=== PATIENT | female | born 1980 | race Caucasian/White ===

== ENCOUNTER 2020-02-27 06:08 | Inpatient (IN) | payer BC ==
[2020-02-27] MEDS ORDERED: METHYLERGONOVINE 0.2 MG/ML 1 ML AMP IM PRN (06:34)
[2020-02-27] MEDS ORDERED: CARBOPROST TROMETHAMINE 250 MCG/ML 1 ML AMP IM PRN (06:34)
[2020-02-27] MEDS ORDERED: LIDOCAINE 0.5% (PF) 5 MG/ML (50 ML SDV) SQ PRN (06:34)
[2020-02-27] MEDS ORDERED: OXYTOCIN 10 UNIT/ML 1 ML VIAL IM PRN (06:34)
[2020-02-27] MEDS ORDERED: TERBUTALINE 1 MG/ML VIAL SQ PRN (06:34)
[2020-02-27] MEDS ORDERED: OXYTOCIN 30 UNITS/500 ML NS 30 UNIT in SALINE 1 500ML.BAG IV SCH (06:45)
[2020-02-27] MEDS ORDERED: LACTATED RINGERS 1,000 ML IV SCH ×2 (06:45)
--- NOTE | 2020-02-27 08:04 | P.HPOB ---
History of Present Illness H&P Date: 02/27/20 Chief Complaint: Here for induction of labor, spontaneous uterine contractions noted. This is a 40-year-old female 4 para 2011 EDC 03/05/2020 at 39 weeks gestation who presents this morning for induction with favorable multiparous cervix. She is noted to be in early spontaneous labor with uterine contractions every 4-5 minutes apart. Fetus is been active throughout the . She denies fluid leakage or vaginal bleeding. Past medical history is essentially negative. Past surgical history wisdom teeth extracted in the past. Current medications vitamins daily. ALLERGIES sulfa, reaction unknown. Family history significant for hypertension. 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 She denies alcohol or drug use. history blood type A positive, rubella status immune. VDRL testing, ur ine culture, hepatitis B surface antigen, HIV testing, gonorrhea and chlamydia cultures, group B strep cultures all negative. One-hour Glucola 124. On exam patient is 5 foot 5 inches, 187 pounds, blood pressure 123/65. The general physical exam is within normal limits. The cervix is 4 cm dilated, 70% effaced, -2 station, vertex presentation. Artificial amniorrhexis reveals clear fluid. heart rate is consistent with reactive NST. Impression: 39 week intrauterine , here for elective induction of labor, in early spontaneous labor. Advanced maternal age. All signs reassurin g. Plan: Close maternal and surveillance. Oxytocin per hospital protocol. Anticipate normal spontaneous vaginal delivery. Analgesic options reviewed. Review of Systems Constitutional: Reports as per HPI Past Medical History Past Medical History: No Reported History Additional Past Medical History / Comment(s): GESTATIONAL DIABETES PAST History of Any Multi-Drug Resistant Organisms: None Reported Past Surgical History: No Surgical Hx Reported Past Anesthesia/Blood Transfusion Reactions: No Reported Reaction Past Psychological History: No Psychological Hx Reported Smoking Status: Never smoker Past Alcohol Use History: None Reported Past Drug Use History: None Reported - Past Family History Mother History Unknown: Yes Family Medical History: No Reported History Medications and Allergies Home Medications Medication Instructions Recorded Confirmed Type Pnv,Calcium 72/Iron/Folic Acid 1 tab PO DAILY 10/26/15 02/27/20 History [ Plus Tablet] Aspirin 1 tab PO ONCE 02/27/20 02/27/20 History Allergies Allergy/AdvReac Type Severity Reaction Status Date / Time No Known Allergies Allergy Verified 02/27/20 06:33 Exam Vital Signs Temp Pulse Resp BP Pulse Ox 02/27/20 06:44 97.2 F L 67 16 123/65 99 Intake and Output 02/26/20 02/27/20 02/27/20 22:59 06:59 14:59 Other: Weight 84.822 kg See dictation under HPI placed Assessment and Plan Assessment: 39 week intrauterine , favorable multiparous cervix, early spontaneous labor. Advanced maternal age. All signs reassuring. Plan: Close maternal and surveillance. Oxytocin as needed. Analgesic options reviewed. Anticipate normal spontaneous vaginal delivery. Time with Patient: Less than 30
[2020-02-27 08:36] LABS: Basophils % (A) 0 %; Eosinophils # (A) 0.2 k/uL (0-0.7); Eosinophils % (A) 4 %; HCT 37.4 % (34.0-46.0); HGB 12.2 gm/dL (11.4-16.0); Lymphocytes # (A) 1.4 k/uL (1.0-4.8); Lymphocytes % (A) 20 %; MCH 29.5 pg (25.0-35.0); MCHC 32.7 g/dL (31.0-37.0); MCV 90.2 fL (80.0-100.0); Mean Platelet Volume 10.7; Monocytes # (A) 0.4 k/uL (0-1.0); Monocytes % (A) 5 %; Neutrophils # (A) 4.9 k/uL (1.3-7.7); Neutrophils % (A) 69 %; Platelet Count 178 k/uL (150-450); RBC 4.15 m/uL (3.80-5.40); RDW 14.1 % (11.5-15.5); WBC 7.1 k/uL (3.8-10.6)
[2020-02-27] MEDS ORDERED: IBUPROFEN 600 MG TAB PO PRN (10:20)
[2020-02-27] MEDS ORDERED: HYDROCORTISONE 2.5% RECTAL CREAM 30 GM TUBE RECTAL PRN (10:20)
[2020-02-27] MEDS ORDERED: ZOLPIDEM 5 MG TAB PO PRN (10:20)
[2020-02-27] MEDS ORDERED: diphenhydrAMINE 50 MG/ML 1 ML VIAL IVP PRN ×2 (10:20)
[2020-02-27] MEDS ORDERED: diphenhydrAMINE 25 MG CAP PO PRN (10:20)
[2020-02-27] MEDS ORDERED: SIMETHICONE 80 MG CHEWABLE PO PRN (10:20)
[2020-02-27] MEDS ORDERED: ACETAMINOPHEN TAB 325 MG TAB PO PRN (10:20)
[2020-02-27] MEDS ORDERED: diphenhydrAMINE 50 MG CAP PO PRN (10:20)
[2020-02-27] MEDS ORDERED: BENZOCAINE/MENTHOL SPRAY 1 GM/SPRAY AEROSOL TOPICAL PRN (10:20)
[2020-02-27] MEDS ORDERED: LANOLIN CREAM 5 GM TUBE TOPICAL PRN (10:20)
--- NOTE | 2020-02-27 10:20 | P.PROBDLV ---
Vaginal Delivery Note - . Vaginal Delivery Note: This is a 40-year-old white female 4 para 2012 EDC 03/05/2020 at 39 weeks gestation. Patient presented today for induction with favorable multiparous cervix. Fetus is been active throughout the . remarkable for group B strep cultures negative, blood type O positive, rubella status immune. Please see dictated history and physical for details. Artificial amniorrhexis revealed clear fluid. Oxytocin was started and titrated per hospital protocol. Epidural was placed per her request. heart tones were reassuring throughout the first and second stages of labor. Patient was judged to be completely dilated at 0958 hours and began the second stage of labor at that time. Perineal body was prepped and draped in usual sterile fashion. Infant's head delivered occiput anterior and he restituted accordingly. There was a nuchal cord 1 was reduced on the perineal body. Anterior left shoulder was delivered without issue, patient officially delivered of a liveborn male at 1004 hrs. Umbilical cord was doubly clamped and ligated, he was handed to waiting nurses for evaluation where scores of 8 and 9 at one and 5 minutes respectively were given. Uterus was massaged. The placenta delivered spontaneously at 1007 hrs., it was inspected and noted to be intact with trivascular cord. Inspection of the cervix, vagina, perineum, periurethral, and perirectal areas revealed no significant lacerations or defects. Fundus is firm and in the midline, symmetric and 18 week size upon completion of delivery. Estimated blood loss 200 mL's. Infant weighed 3-75 g or 7 pounds 3.5 ounces. Patient is requesting circumcision for her infant son.
[2020-02-27] MEDS: SENNOSIDES-DOCUSATE SODIUM 1 EACH TAB PO SCH (19:44)
[2020-02-28 06:48] LABS: Basophils % (A) 0 %; Eosinophils # (A) 0.2 k/uL (0-0.7); Eosinophils % (A) 3 %; HCT 35.6 % (34.0-46.0); HGB 11.5 gm/dL (11.4-16.0); Lymphocytes # (A) 1.5 k/uL (1.0-4.8); Lymphocytes % (A) 19 %; MCH 28.9 pg (25.0-35.0); MCHC 32.3 g/dL (31.0-37.0); MCV 89.6 fL (80.0-100.0); Mean Platelet Volume 8.9; Monocytes # (A) 0.4 k/uL (0-1.0); Monocytes % (A) 5 %; Neutrophils # (A) 5.8 k/uL (1.3-7.7); Neutrophils % (A) 72 %; Platelet Count 161 k/uL (150-450); RBC 3.97 m/uL (3.80-5.40)
--- NOTE | 2020-02-28 08:09 | P.DS ---
Providers Date of admission: 02/27/20 06:08 Expected date of discharge: 02/28/20 Attending physician: Elida Ramírez Primary care physician: [facility] [place] Course: This is a 40-year-old female 4 para 2012 EDC 03/05/2020 at 39 weeks gestation who presented for induction with favorable multiparous cervix. was remarkable for negative group B strep cultures, rubella status immune, blood type O+. Please see dictated history and physical for details. Artificial amniorrhexis revealed clear fluid. Patient quickly went on to deliver a liveborn male vaginally, scores 8 and 9 at one and 5 minutes respectively. There were no lacerations or tears encountered. weighed 7 pounds 3.5 ounces or 3275 g. Estimated blood loss recorded of 200 mL's. There was a nuchal cord encountered and easily reduced. Please see dictated delivery note for details. This morning the patient is doing well. She is voiding, ambulate in, passing flatus without difficulty. Vital signs are stable and she is afebrile. Eleele is doing well. Circumcision was just performed. Patient is judged to be in excellent condition for discharge home. She will follow-up with me in the office in 6 weeks. I have reminded her no intercourse, tampons or douching. She will use [id number] Advil or Aleve, or Motrin as needed for pain. She will call with any fevers shakes or chills, foul smelling or copious lochia, with the passage of large blood clots, with any pain not alleviated by [id number] products, or indeed with any concerns. We have discussed contraceptive options and we will discuss this further in the office. Assessment: Doing well day #1 Patient Condition at Discharge: Good Plan - Discharge Summary Discharge Rx Participant: No New Discharge Prescriptions: No Action Pnv,Calcium 72/Iron/Folic Acid [ Plus Tablet] 1 tab PO DAILY Aspirin 1 tab PO ONCE Discharge Medication List Pnv,Calcium 72/Iron/Folic Acid [ Plus Tablet] 1 tab PO DAILY 10/26/15 [History] Aspirin 1 tab PO ONCE 02/27/20 [History] Follow up Appointment(s)/Referral(s): Elida Ramírez MD [STAFF PHYSICIAN] - 2 Weeks
[2020-02-28] MEDS: SENNOSIDES-DOCUSATE SODIUM 1 EACH TAB PO SCH (09:10)
[2020-02-28 09:42] VITALS: BP 124/74; PULSE 74; RESP 16; TEMP 97.9
== END 2020-02-28 11:15 | disposition home or self-care (01) | DRG 807 ==
LOC: 4FBP 06:08
PROVIDERS: ADMIT Obstetrics & Gynecology; ATTEND Obstetrics & Gynecology
PROC: 10E0XZZ Delivery of Products of Conception, External Approach (ICD-10-PCS; principal; 2020-02-27)
PROC: 10907ZC Drainage of Amniotic Fluid, Therapeutic from Products of Conception, Via Natural or Artificial Opening (ICD-10-PCS; principal; 2020-02-27)
PROC: 3E033VJ Introduction of Other Hormone into Peripheral Vein, Percutaneous Approach (ICD-10-PCS; principal; 2020-02-27)
DX: O69.81X0 Labor and delivery complicated by cord around neck, without compression, not applicable or unspecified (principal); Z37.0 Single live birth; Z3A.39 39 weeks gestation of pregnancy; Z82.49 Family history of ischemic heart disease and other diseases of the circulatory system; Z86.32 Personal history of gestational diabetes; Z88.2 Allergy status to sulfonamides; Z79.82 Long term (current) use of aspirin
CPT/HCPCS: 85025; 86850; 86900; 86901

== ENCOUNTER → 2022-08-01 | Outpatient (CLI) | payer BC ==
--- NOTE | 2022-08-01 13:25 | MM ---
Reason for Exam: Follow-up at short interval from prior study. Last screening mammogram was performed 6 month(s) ago. Patient History: Menarche at age 15. First Full-Term at age 33. Late child-bearing (after 30). Last menstrual period: 07/21/2022 Risk Values: Robyn 5 year model risk: 0.8%. NCI Lifetime model risk: 13.6%. Prior Study Comparison: 01/30/2022 Bilateral MG 3D screening mammo w/cad, [facility]. Tissue Density: Right: The breast tissue is heterogeneously dense. This may lower the sensitivity of mammography. Findings: Analyzed By CAD. No suspicious group of calcifications within the right breast. Redemonstration of a lobulated 9 mm mass within the upper outer right breast at posterior depth. Redemonstration of a elongated 9 mm mass within the lower outer right breast. No new suspicious masses. Overall Assessment: Incomplete: need additional imaging evaluation, BI-RAD 0 Management: Diagnostic Breast Ultrasound of the right breast. A clinical breast exam by your physician is recommended on an annual basis and results should be correlated with mammographic findings. This exam should not preclude additional follow-up of suspicious palpable abnormalities. Results were given to the patient verbally at the time of exam. Note on Robyn scores and lifetime risk: 1. A Robyn score greater than 3% is considered moderate risk. If this is the case, consider specialist referral to assess eligibility for a risk reducing agent. If overall lifetime risk for the development of breast cancer is 20% or higher, the patient may qualify for future screening with alternating mammogram and breast MRI. Electronically signed and approved by: Attila Guan D.O.
--- NOTE | 2022-08-01 14:02 | USB ---
Reason for Exam: Additional evaluation requested from prior study. Patient History: Menarche at age 15. First Full-Term at age 33. Late child-bearing (after 30). Risk Values: Robyn 5 year model risk: 0.8%. NCI Lifetime model risk: 13.6%. Technique: Method: Targeted. Prior Study Comparison: 01/30/2022 Bilateral MG 3D screening mammo w/cad, [facility]. Findings: The lateral section of the breast of the right breast, the axilla of the right breast and the retroareolar of the right breast were scanned. Targeted ultrasound of the right breast from 7-12 o'clock with additional evaluation of the nipple and axilla was performed. There is a anechoic mass in the right breast at 10:00 9 cm of the nipple measuring 0.8 x 0.6 x 0.3 cm favored to represent a cluster of cysts. Overall Assessment: Benign, BI-RAD 2 Management: Screening Mammogram of both breasts in 6 months. A clinical breast exam by your physician is recommended on an annual basis and results should be correlated with mammographic findings. This exam should not preclude additional follow-up of suspicious palpable abnormalities. Results were given to the patient verbally at the time of exam. Electronically signed and approved by: Attila Guan D.O.
== END | disposition home or self-care (01) ==
LOC: RADMAMWWP 12:57
PROVIDERS: ATTEND Family Medicine
DX: R92.8 Other abnormal and inconclusive findings on diagnostic imaging of breast (principal)
CPT/HCPCS: 77061; 77065

== ENCOUNTER → 2023-08-14 | Outpatient (CLI) | payer BC ==
--- NOTE | 2023-08-15 12:03 | MM ---
Reason for Exam: Screening (asymptomatic). Last mammogram was performed 1 year(s) and 6 month(s) ago. Patient History: Menarche at age 15. First Full-Term at age 33. Late child-bearing (after 30). Last menstrual period: 07/18/2023 Risk Values: Robyn 5 year model risk: 0.8%. NCI Lifetime model risk: 13.5%. Prior Study Comparison: 01/30/2022 Bilateral MG 3D screening mammo w/cad, [facility]. 08/01/2022 Right MG 3D diag mammo w/cad RT, [facility]. Tissue Density: There are scattered areas of fibroglandular density. Findings: Analyzed By CAD. Right breast: There is no suspicious group of microcalcifications or new suspicious mass. Left breast: There is no suspicious group of microcalcifications or new suspicious mass. Overall Assessment: Negative, BI-RAD 1 Management: Screening Mammogram of both breasts in [address] [facility] will attempt to contact patient to return for supplemental views and ultrasound if indicated. Patient should continue monthly self-breast exams. A clinical breast exam by your physician is recommended on an annual basis. This exam should not preclude additional follow-up of suspicious palpable abnormalities. Note on Robyn scores and lifetime risk: 1. A Robyn score greater than 3% is considered moderate risk. If this is the case, consider specialist referral to assess eligibility for a risk reducing agent. 2. If overall lifetime risk for the development of breast cancer is 20% or higher, the patient may qualify for future screening with alternating mammogram and breast MRI. Electronically signed and approved by: Jarad Coronel DO
== END | disposition home or self-care (01) ==
LOC: RADMAMWWP 10:41
PROVIDERS: ATTEND Family Medicine
DX: Z12.31 Encounter for screening mammogram for malignant neoplasm of breast (principal)
CPT/HCPCS: 77063; 77067

== ENCOUNTER → 2024-08-14 | Outpatient (CLI) | payer BC ==
--- NOTE | 2024-08-14 10:20 | MM ---
Reason for Exam: Screening (asymptomatic). Last screening mammogram was performed 12 month(s) ago. Patient History: Menarche at age 15. First Full-Term at age 33. Late child-bearing (after 30). Last menstrual period: 07/12/2024 Risk Values: Robyn 5 year model risk: 0.9%. NCI Lifetime model risk: 13.4%. Prior Study Comparison: 01/30/2022 Bilateral MG 3D screening mammo w/cad, [facility]. 08/01/2022 Right MG 3D diag mammo w/cad RT, [facility]. 08/14/2023 Bilateral MG 3D screening mammo w/cad, [facility]. Tissue Density: There are scattered areas of fibroglandular density. Findings: Analyzed By CAD. Right breast: There is no suspicious group of microcalcifications or new suspicious mass. Left breast: There is no suspicious group of microcalcifications or new suspicious mass. Overall Assessment: Negative, BI-RAD 1 Management: Screening Mammogram of both breasts in [address] [facility] will attempt to contact patient to return for supplemental views and ultrasound if indicated. Patient should continue monthly self-breast exams. A clinical breast exam by your physician is recommended on an annual basis. This exam should not preclude additional follow-up of suspicious palpable abnormalities. Note on Robyn scores and lifetime risk: 1. A Robyn score greater than 3% is considered moderate risk. If this is the case, consider specialist referral to assess eligibility for a risk reducing agent. 2. If overall lifetime risk for the development of breast cancer is 20% or higher, the patient may qualify for future screening with alternating mammogram and breast MRI. [facility], , 08/14/2024 10:17 AM. Electronically signed and approved by: Jarad Coronel DO
== END | disposition home or self-care (01) ==
LOC: RADMAMWWP 09:44
PROVIDERS: ATTEND Family Medicine
DX: Z12.31 Encounter for screening mammogram for malignant neoplasm of breast (principal); R92.323 Mammographic fibroglandular density, bilateral breasts
CPT/HCPCS: 77063; 77067